=== PATIENT | female | born 1990 | race African-American/Black ===

== ENCOUNTER 2017-09-15 12:23 | Emergency (ER) | payer OTHER ==
[~2017-09-15] VITALS: Ht 162.6 cm; Wt 113.4 kg
[~2017-09-15 12:23] MED LIST: AMOXICILLIN500 M1 PO; BACTRIM DS TAB1 EACH PO; KEFLEX500 MG PO; MACROBID 100 M100 M1 PO; NAPROSYN500 MG PO; NOHOMEMEDICATIONS; NORCO 5-325 TA1 EACH PO
[2017-09-15 12:53] LABS: URINE BILIRUBIN NEGATIVE (Negative); URINE BLOOD NEGATIVE (Negative); URINE CLARITY CLEAR; URINE COLOR YELLOW; URINE GLUCOSE-RANDOM* NEGATIVE (Negative); URINE KETONES NEGATIVE (Negative); URINE LEUKOCYTES-REFLEX NEGATIVE (Negative); URINE NITRITE-REFLEX NEGATIVE (Negative); URINE PROTEIN (DIPSTICK) NEGATIVE (Negative); URINE SPECIFIC GRAVITY >= 1.030 (1.005-1.035); URINE UROBILINOGEN 0.2 E.U./dl (0.2-1.0)
[2017-09-15 13:20] LABS: BASOPHILS 0.6 % (0.0-2.0); EOSINOPHILS 3.1 % (0.0-3.0); HEMATOCRIT 41.5 % (37.0-47.0); HEMOGLOBIN 13.6 gm/dL (12.0-15.0); LYMPHOCYTES 21.8 % (24.0-44.0); MCH 26.6 pg (26.0-34.0); MCHC 32.8 g/dL (28.0-37.0); MCV 81.2 fL (80.0-100.0); MONOCYTES 6.3 % (1.0-8.0); PLATELET COUNT 254 thou/uL (150-400); POLYS 68.2 % (36.0-66.0); RBC 5.11 mil/uL (4.20-5.00); WBC 7.3 thou/uL (4.0-11.0)
[2017-09-15 13:27] LABS: CALCIUM 8.9 mg/dL (8.5-10.1); CREATININE 0.9 mg/dL (0.6-1.0); POTASSIUM 3.8 mmol/L (3.5-5.1)
[2017-09-15] MEDS ORDERED: BENTYL 20 MG TA20 M1 PO (14:05)
[2017-09-15 14:16] VITALS: BP 133/78
[2017-09-16 14:13] LABS: NEISSERIA GONORRHEA-PCR Negative (Negative)
== END 2017-09-15 14:17 | disposition home or self-care (01) ==
LOC: ER 12:23
PROVIDERS: Nurse Practitioner Family
DX: R10.31 Right lower quadrant pain (principal); R19.7 Diarrhea, unspecified; R11.0 Nausea; R39.198 Other difficulties with micturition

== ENCOUNTER 2018-12-31 10:17 | Emergency (ER) | payer OTHER ==
[~2018-12-31] VITALS: Ht 162.6 cm; Wt 126.5 kg
[~2018-12-31 10:17] MED LIST changes: +BENTYL 20 MG TA20 M1 PO
[2018-12-31 10:20] VITALS: BP 140/106
[2018-12-31] MEDS ORDERED: MAGIC MOUTHWASH SWISH&SPIT (11:18)
== END 2018-12-31 11:14 | disposition home or self-care (01) ==
LOC: ER 10:17
DX: K14.0 Glossitis (principal)

== ENCOUNTER 2019-02-13 03:06 | Emergency (ER) | payer OTHER ==
[~2019-02-13] VITALS: Ht 160 cm; Wt 127.0 kg
[~2019-02-13 03:06] MED LIST changes: +MAGIC MOUTHWASH SWISH&SPIT
[2019-02-13 05:31] VITALS: BP 138/91
== END 2019-02-13 05:32 | disposition home or self-care (01) ==
LOC: ER 03:06
DX: S93.401A Sprain of unspecified ligament of right ankle, initial encounter (principal); M25.471 Effusion, right ankle; X50.1XXA Overexertion from prolonged static or awkward postures, initial encounter; Y93.89 Activity, other specified; Y92.89 Other specified places as the place of occurrence of the external cause; Y99.8 Other external cause status

== ENCOUNTER 2019-02-17 10:36 | Emergency (ER) | payer OTHER ==
[~2019-02-17] VITALS: Ht 162.6 cm; Wt 127.0 kg
[2019-02-17] MEDS ORDERED: KEFLEX500 M1 PO (11:41)
[2019-02-17 12:00] VITALS: BP 127/88
== END 2019-02-17 12:00 | disposition home or self-care (01) ==
LOC: ER 10:36
DX: L03.113 Cellulitis of right upper limb (principal)

== ENCOUNTER 2019-06-16 17:27 | Emergency (ER) | payer OTHER ==
[~2019-06-16] VITALS: Ht 162.6 cm; Wt 117.9 kg
[2019-06-16 17:27] VITALS: BP 112/67
[~2019-06-16 17:27] MED LIST changes: +KEFLEX500 M1 PO
[2019-06-16] MEDS ORDERED: KEFLEX500 M1 PO (17:47)
== END 2019-06-16 18:06 | disposition home or self-care (01) ==
LOC: ER 17:27
DX: L03.114 Cellulitis of left upper limb (principal); Z79.2 Long term (current) use of antibiotics

== ENCOUNTER 2019-09-17 23:33 | Emergency (ER) | payer OTHER ==
[~2019-09-17] VITALS: Ht 162.6 cm; Wt 122.5 kg
[2019-09-18 00:22] LABS: URINE BILIRUBIN NEGATIVE (Negative); URINE BLOOD NEGATIVE (Negative); URINE CLARITY CLEAR; URINE COLOR YELLOW; URINE GLUCOSE-RANDOM* NEGATIVE (Negative); URINE KETONES NEGATIVE (Negative); URINE LEUKOCYTES-REFLEX NEGATIVE (Negative); URINE NITRITE-REFLEX NEGATIVE (Negative); URINE PROTEIN (DIPSTICK) TRACE (Negative); URINE SPECIFIC GRAVITY >= 1.030 (1.005-1.035); URINE UROBILINOGEN 0.2 E.U./dl (0.2-1.0)
[2019-09-18 01:09] VITALS: BP 113/62
== END 2019-09-18 01:10 | disposition home or self-care (01) ==
LOC: ER 23:33
PROVIDERS: Emergency Medicine
DX: R30.0 Dysuria (principal); Z98.890 Other specified postprocedural states